=== PATIENT | female | born 1980 | race Hispanic/Latino ===

== ENCOUNTER 2019-01-15 12:57 | Outpatient (CLI) | payer OTHER ==
--- NOTE | 2019-01-15 14:49 | MRI ---
MR the lumbar spine without contrast INDICATION: Low back pain COMPARISON: None. TECHNIQUE: Multiplanar multisequence MR images were obtained of lumbar spine without IV contrast. FINDINGS: Bone marrow: There is Modic endplate degenerative changes at L4-5 Distal spinal cord and conus: Normal. The conus seen to terminate at L1. Visualized retroperitoneum and paraspinal soft tissues: There is a 3.2 cm cystic abnormality partiall y imaged within the right ovary. There is a 2.8 cm cystic abnormality within the left ovary that is incompletely evaluated. Vertebral levels: L5-S1: There is a mild broad-based bulge but no appreciable central canal or neural foraminal narrowi ng.. L4-5: There is a mild broad-based bulge but no appreciable central canal or neural foraminal narrowin g. L3-4: There is a mild broad-based bulge but no appreciable central canal or neural foraminal narrowin g. L2-3: No appreciable central canal or neuroforaminal narrowing. L1-L2: There is a mild broad-based bulge but no appreciable central canal or neural foraminal narrowi ng. T12-L1: No appreciable central canal or neuroforaminal narrowing. IMPRESSION: 1. Mild spondylosis of the lumbar spine 2. Bilateral adnexal cystic abnormalities. Pelvic ultrasound is recommended for additional characteri zation.
== END 2019-01-15 12:58 | disposition home or self-care (01) ==
LOC: SCSMRI 12:57
PROVIDERS: ATTEND Family Medicine
DX: M51.36 Other intervertebral disc degeneration, lumbar region (principal); M54.5 Low back pain; G89.29 Other chronic pain; M47.816 Spondylosis without myelopathy or radiculopathy, lumbar region
CPT/HCPCS: 72148

== ENCOUNTER 2019-02-10 11:27 | Outpatient (CLI) | payer OTHER ==
--- NOTE | 2019-02-10 17:40 | ULT ---
PELVIC ULTRASOUND: Technique: Transabdominal and endovaginal ultrasound of the pelvis performed. Indications: Ovarian cyst. FINDINGS: Uterus mildly prominent measuring 9.0 x 5.1 x 4.5 cm. Endometrium is mildly prominent measuring up to 1.0 cm. There is a 1.5 to 2.0 cm cyst right ovary. There is a 1.0 cm cyst left ovary. Color doppler with spectral analysis demonstrates blood flow to both ovaries. No free fluid. IMPRESSION: There are bilateral ovarian follicular cysts as described. The endometrial stripe appears upper fabiano l measured at approximately 1.0 cm. POS: [facility]
== END 2019-02-10 11:28 | disposition home or self-care (01) ==
LOC: SCSULT 11:27
PROVIDERS: ATTEND Family Medicine
DX: N83.02 Follicular cyst of left ovary (principal); N83.01 Follicular cyst of right ovary
CPT/HCPCS: 76856